=== PATIENT | male | born 1980 | race African-American/Black ===

== ENCOUNTER 2016-09-21 13:29 | Inpatient (IN) ==
[2016-09-21] MEDS ORDERED: ZOFRAN IV PRN (14:39)
[2016-09-21] MEDS ORDERED: NS 1,000 ML IV SCH (15:00)
--- NOTE | 2016-09-21 15:05 | Diag Imaging Result Doc PS360 ---
ABDOMEN FLAT/UPRIGHT - 09/21/2016 INDICATION: intractable N/V TECHNIQUE: COMPARISON: CT abdomen pelvis 09/19/2016 FINDINGS: There is moderate constipation of the before meals ascending and transverse colon. No bowel obstruction or free air. No abnormal calcifications. IMPRESSION: Moderate constipation. Electronically signed by Clive Weathers 09/21/2016 3:03 PM
[2016-09-21 15:12] LABS: BASO% 0.1 % (0.0-0.8); EOS# 0.03 X1000 (0.0-0.7); EOS% 0.2 % (0.0-10.0); HEMATOCRIT 40.4 % (42.0-52.0); HEMOGLOBIN 14.4 g/dL (14.0-18.0); IMM GRAN# 0.05 X1000 (0.0-0.04); IMM GRAN% 0.3 % (0.0-0.5); LYMPH# 0.62 X1000 (1.2-3.4); LYMPH% 3.5 % (20.5-51.1); MANUAL DIFF NEEDED? YES; MCH 28.9 PG (27-31); MCHC 35.6 g/dL (33-37); MONO# 1.44 X1000 (0.11-0.59); MPV 10.4 FL (7.4-10.4); NEUT% 87.9 % (42.2-75.2); PLT 295 X1000 (130-400); RBC 4.99 XMIL (4.7-6.1)
[2016-09-21 15:14] LABS: URINE MICRO REVIEW NEEDED? NO; URINE SOURCE VOIDED
[2016-09-21 15:20] LABS: BILIRUBIN URINE SMALL (NEGATIVE); BLOOD URINE NEGATIVE (NEGATIVE); COLOR YELLOW; GLUCOSE URINE NEGATIVE (NEGATIVE); LEUKOCYTES URINE NEGATIVE (NEGATIVE); NITRITE URINE NEGATIVE (NEGATIVE); PH URINE 6.5; PROTEIN URINE 100 mg/dL (NEGATIVE); SP GRAVITY URINE 1.035; TURBIDITY URINE CLEAR (CLEAR); UROBILINOGEN URINE 2 mg/dL (NORMAL)
[2016-09-21] MEDS: SODIUM CHLORIDE 0.9% INJ SCH (15:22)
[2016-09-21] MEDS: PROTONIX IV SCH (15:22)
[2016-09-21 15:24] LABS: UR EPITHELIAL CELLS >10 /HPF (<10); URINE BACTERIA NEGATIVE /HPF; URINE RBC <10 /HPF (<10)
[2016-09-21 15:31] LABS: AGAP 18; ALBUMIN 4.3 g/dL (3.5-5.0); ALKALINE PHOSPHATASE 176 U/L (32-122); AMYLASE 187 U/L (20-200); BUN 8 mg/dL (8-22); CALCIUM 9.5 mg/dL (8.8-10.2); CHLORIDE 84 mmol/L (98-107); COSMO 258; GOT 17 U/L (10-34); GPT 21 U/L (10-44); LIPASE 233 U/L (13-60); POTASSIUM 3.7 mmol/L (3.5-5.1); SODIUM 129 mmol/L (136-145); TCO2 27 mmol/L (25-35); TOTAL BILIRUBIN 0.53 mg/dL (0.20-1.00); TOTAL PROTEIN 8.8 g/dL (6.3-8.3)
[2016-09-21 15:57] LABS: LYMPHS 3 % (21-51); MONO 7 % (1-9)
[2016-09-21] MEDS ORDERED: ROCEPHIN 1 GM/NS 1 GM/50 ML IVPB IV SCH (17:00)
[2016-09-21] MEDS ORDERED: DULCOLAX PR ONE (19:49)
[2016-09-21] MEDS: NICODERM PATCH TD SCH (21:25)
[2016-09-21] MEDS: LEVAQUIN 500 MG/D5W 500 MG/100 ML IVPB IV SCH (21:56)
--- NOTE | 2016-09-22 00:56 | CONSULTATION ---
DATE OF CONSULTATION: 09/21/2016 HISTORY AND REASON FOR CONSULTATION: For evaluation of this patient with abdominal pain and constipation. HISTORY OF PRESENT ILLNESS: This is a 36-year-old gentleman who went to the emergency room on 09/19/2016. At that time, the patient had been having abdominal pain for 1 day. He has undergone a CT scan of the abdomen and pelvis, which revealed that he has some mesenteric adenopathy and panniculitis. The stranding was around the peripancreatic area, and it extended to the mesentery, with multiple enlarged lymph nodes, the largest of them was 2.8 cm in size. The patient was given Bactrim by the ER physician, and he was sent home. However, his mother said that he has been continuing to have abdominal pain, especially in the epigastric area. Therefore, he went to see Dr. Guzman, who decided to admit to the patient to the hospital, and a consultation was obtained. The patient is a poor historian. The mother, she works at [employer]. The mother told me that she was told that the patient has gastritis. Currently, there is a suspicion of acute pancreatitis. This year, the patient was seen several times in the emergency room. There was a visit on 06/22/2016. At that time, the complaint was nausea and vomiting. Apparently, the patient seems to have recurrent attacks of nausea and vomiting and abdominal pain. He also had some left upper quadrant pain at that time. According to the patient, he has been having abdominal pain in the epigastric area, and nausea and vomiting, since about 3-4 days. The pain is so severe, that he needed to come to the emergency room again and again. While in the hospital, the patient is feeling better now. He also claimed that he had at least 5-6 bowel movements per day, but his mother is claiming that he is actually constipated. He was given IV antibiotics, and also pantoprazole and Zofran IV for nausea, and he is feeling much better at this point. Today, the abdominal x-rays revealed a significant amount of stools in the transverse colon and ascending colon. No evidence of obstruction. An ultrasound is being done. PAST MEDICAL HISTORY: 1. Patient is mentally challenged. 2. He also has significant allergic rhinitis, but no asthma. 3. He lives with his mother, and does not seem to have any other medical problems. PAST SURGICAL HISTORY: None. SOCIAL HISTORY: The patient smokes according to him. Mother states that it is news to him also. FAMILY HISTORY: Unremarkable. GASTROINTESTINAL REVIEW OF SYSTEMS: Appetite is remaining fair. There is confusion regarding whether there is significant constipation or diarrhea. There is no fever or chills. The abdominal pain is mainly in the epigastrium. There is no significant lower abdominal pain. He has had some nausea with vomiting, which is under control. PHYSICAL EXAMINATION: Vital Signs: The temperature is 98.2 degrees, pulse rate is 122, respiratory rate is 12, and the blood pressure is 122/85. Skin: Warm and dry. Mucous membranes are moist. Neck: Supple. There is no thyromegaly. Cardiac: Both heart sounds are heard. Rhythm is regular. No murmur. Lungs: Clear to percussion and auscultation. Abdomen: There is tenderness in the epigastrium present, with bowel sounds normally heard. There is no evidence of any abdominal distention. No masses felt. Extremities: Free of any edema. LABORATORY DATA: The WBC count is 17.93. On 09/19, it was 11.2, with a hemoglobin 14.4, hematocrit 40.4, the platelet count is 295,000. The sodium is 129, potassium is 3.7, chloride is 84. The CO2 is 27, BUN is 8, creatinine is 1. The glucose is 109. Alkaline phosphatase is 176. Total protein is 8.8. Albumin 4.3. Globulin is 4.5. Amylase is 187. Lipase is 233. Urine showed protein and ketones, 10-20 WBCs. IMPRESSION: Possible acute pancreatitis, with some mesenteric adenitis present. In acute pancreatitis, usually this degree of mesenteric adenitis is unusual. He may have a viral infection causing that. RECOMMENDATION: The patient is pain-free now. We will observe the patient with the medications and IV fluids which is being ordered. The sodium needs to be corrected. He may need to further evaluation of the GI tract, but based on how he does in the next few days, that can be decided at a later date. I discussed the patient's condition with his mother Greta. cc: Arnie Guzman MD
--- NOTE | 2016-09-22 03:48 | HISTORY AND PHYSICAL ---
CHIEF COMPLAINT: Abdominal pain, intractable nausea and vomiting. HISTORY OF PRESENT ILLNESS: Mr. Vyas is a 36-year-old, gentleman complaining of pain in the abdomen going on for 2 days. The pain was epigastric, mild to moderate, associated with nausea and vomiting. The patient vomited multiple times. The patient claimed he vomited 5 times even today. Every time he tries to eat or drink, the patient was throwing up. The patient went to the emergency room over the weekend. Patient had workup done, told to have a stomach virus and patient was given some medication. The patient was sent home. The patient was not doing better. He continued to have nausea and vomiting. The patient was feeling weak. I evaluated patient in the office. I reviewed his record from the ER. The patient had elevated lipase and some CT evidence of pancreatitis, constipation. As patient was not responding to outpatient treatment, I decided to admit the patient for further care. The patient did have some chills, low-grade fever. The patient did have nausea. No hematemesis or melena. He denied any diarrhea. The patient was constipated. No bleeding per rectum. No abdominal distention. No typical chest pain, palpitations, orthopnea, or PND. Unquantified weight loss. No heat or cold intolerance. The patient had concentrated urine, decreased urine output. No joint pain or swelling. No runny nose, stuffy nose, sinus drainage. The patient had a history of conjunctivitis, seen by eye doctor, doing better. No heat or cold intolerance. Denied polyuria or polydipsia. No unusual headache, neck stiffness, or blurred vision. No further history available at this time. ALLERGIES: No known drug allergies. MEDICATIONS: Patient is on Zyrtec and Bactrim DS. PAST MEDICAL HISTORY: Significant for asthma, rhinitis, current conjunctivitis, gastritis. PERSONAL HISTORY: Single. Lives with the mother. The patient smokes a pack per day. Denied alcohol or substance abuse. FAMILY HISTORY: Significant for mother with hypertension. The patient does not know about his father's medical issues. REVIEW OF SYSTEMS: As per HPI. PHYSICAL EXAMINATION: GENERAL: Young gentleman in mild distress. Rest from the chart. HEENT: Head atraumatic, normocephalic. [place] conjunctivae. Anicteric sclerae. Extraocular muscle movement normal. Fundus cannot be penetrated. Good oral hygiene. No tonsillopharyngeal congestion. Ears and nose benign. Dry oral mucosa. NECK: Supple. No JVD, thyromegaly, or lymphadenopathy. CHEST: Bilateral good air entry present. No rales or rhonchi. CARDIOVASCULAR: S1 and S2 heard. No gallop or thrill. ABDOMEN: Soft. No distention. Bowel sounds present. Mild epigastric tenderness. No guarding or rigidity. EXTREMITIES: No cyanosis, clubbing. No acute DVT. RECREATION ESTABLISHMENT MANAGER: Alert, awake. Able to move all 4 limbs. MUSCULOSKELETAL SYSTEM: No evidence of acute synovitis. LABORATORY DATA: Revealed leukocytosis with left shift. Electrolytes: Sodium was 129, CO2 was 27, blood glucose 109. Alkaline phosphatase was 176, total protein 8.8, amylase was 186, lipase was 233. Urinalysis, 10-20 WBCs. CONSIDERATION: Patient admitted with abdominal pain, intractable nausea and vomiting, not responding to outpatient treatment. Laboratory data suggestive of acute pancreatitis. The patient does have leukocytosis, constipation, gastritis. His CT scan done yesterday, results reviewed. PLAN: Admit the patient. IV hydration. Septic workup. IV antibiotics. GI consultation. Overall plan discussed at length with the patient and his mother. They are in agreement. cc: Arnie Guzman MD
--- NOTE | 2016-09-22 06:42 | PROGRESS NOTE ---
DATE: 09/22/2016 SUBJECTIVELY: Mr. Vyas is feeling some better. The patient denied any vomiting, vague abdominal pain. No nausea. The patient did have good bowel movement. He is scheduled to have an abdominal ultrasound today. No dysuria or hematuria. No typical chest pain. The patient's vital signs noted. Patient remains afebrile. OBJECTIVE: Neck: Supple. No JVD. Lungs: Bilateral good air entry present. CVS: S1 and S2. Tachycardia. Abdomen: Soft, globular. Bowel sounds present. Extremities: No cyanosis, clubbing, edema. LINE STAKER: Alert, awake. Able to move all 4 limbs. CONSIDERATION: Patient admitted with intractable nausea, vomiting. LAB DATA: Revealing pancreatitis. The patient does have tachycardia. Abdominal x-ray did reveal constipation. I gave him Dulcolax suppository. Patient did have good bowel movement. GI consult requested. I am going to get TSH and free T4. Repeat blood work today. Continue rest of the treatment. Close observation. PLAN: Overall plan discussed with the patient and he is in agreement. cc: Arnie Guzman MD
[2016-09-22 07:01] LABS: BASO% 0.1 % (0.0-0.8); EOS# 0.01 X1000 (0.0-0.7); EOS% 0.1 % (0.0-10.0); IMM GRAN# 0.06 X1000 (0.0-0.04); IMM GRAN% 0.4 % (0.0-0.5); LYMPH# 0.83 X1000 (1.2-3.4); LYMPH% 5.5 % (20.5-51.1); MANUAL DIFF NEEDED? YES; MCH 28.6 PG (27-31); MCHC 35.1 g/dL (33-37); MCV 81.3 FL (81-99); MONO# 1.22 X1000 (0.11-0.59); MONO% 8.1 % (1.7-9.3); MPV 10.6 FL (7.4-10.4); NEUT% 85.8 % (42.2-75.2); PLT 261 X1000 (130-400); RBC 4.55 XMIL (4.7-6.1)
--- NOTE | 2016-09-22 07:01 | EKG Report ---
Test Performed on : 09/22/2016 06:12:39 AM Test Reason : CP Blood Pressure : / mmHG Vent. Rate : 111 BPM Atrial Rate : 111 BPM P-R Int : 138 ms QRS Dur : 082 ms QT Int : 320 ms P-R-T Axes : 070 063 021 degrees QTc Int : 435 ms Sinus tachycardia. Nonspecific T wave abnormality Abnormal ECG When compared with ECG of 22-SEP-2016 06:12, (Unconfirmed) No significant change was found Confirmed by Jp Roy MD ([id number]) on 09/23/2016 7:16:17 AM
[2016-09-22 07:02] LABS: AGAP 17; ALBUMIN 3.6 g/dL (3.5-5.0); ALKALINE PHOSPHATASE 154 U/L (32-122); BUN 7 mg/dL (8-22); CALCIUM 8.9 mg/dL (8.8-10.2); CHLORIDE 92 mmol/L (98-107); COSMO 260; GOT 13 U/L (10-34); GPT 16 U/L (10-44); HDL 34 mg/dL (35-55); LDL 100 mg/dL; LIPASE 216 U/L (13-60); MAGNESIUM 1.9 mg/dL (1.5-2.7); SODIUM 131 mmol/L (136-145); TCO2 22 mmol/L (25-35); TOTAL BILIRUBIN 0.39 mg/dL (0.20-1.00); TOTAL PROTEIN 7.9 g/dL (6.3-8.3); TRIGLYCERIDES 125 mg/dL (39-160); VLDL 25 mg/dL
[2016-09-22 07:09] LABS: FREE T4 1.12 ng/dL (0.93-1.70)
[2016-09-22 07:12] LABS: BANDS 14 % (0-1); LYMPHS 10 % (21-51); MONO 6 % (1-9)
--- NOTE | 2016-09-22 07:44 | Diag Imaging Result Doc PS360 ---
EXAM: US ABDOMEN-COMPLETE HISTORY: Abdominal Pain TECHNIQUE: COMPARISON: None. FINDINGS: The aorta and pancreas are obscured. Normal inferior vena cava. No focal hepatic abnormality. There is at least one small polyp within the gallbladder. No stones. The gallbladder wall is not thickened. The common bile duct measures 3 mm. Normal right kidney. No hydronephrosis. Normal spleen. No ascites. Normal left kidney. No hydronephrosis. IMPRESSION: Small gallbladder polyp, otherwise normal abdominal ultrasound Electronically signed by Jj Stearns 09/22/2016 7:42 AM
[2016-09-22] MEDS: NS 1,000 ML IV SCH ×3 (07:51→17:33)
[2016-09-22] MEDS: NICODERM PATCH TD SCH (09:23)
--- NOTE | 2016-09-22 09:51 | PROGRESS NOTE ---
DATE: 09/22/2016 SUBJECTIVE: This patient is a 36-year-old gentleman, admitted with abdominal pain, nausea and vomiting. He is feeling much better today and is tolerating liquid diet. He had 1 bowel movement last night. He said that he had a large bowel movement, most of which was liquid stool. The patient denies any pain today. He also has no nausea or vomiting. He is feeling more hungry and would like to eat better. OBJECTIVE: General: On physical examination, the patient is alert, oriented x3. Vital Signs: Temperature is 98.5 degrees, pulse rate is 119 per minute, blood pressure is 138/92, respiratory rate is 17. Skin: Warm and dry. Abdomen: Soft, not distended. There is no significant tenderness. Bowel sounds are normally heard. Extremities: Free of any edema. LAB DATA: His WBC count is down to of 15.03, hemoglobin 13, hematocrit 37. The sodium has come up to of 131, potassium 4. The alkaline phosphatase has dropped to 154. The lipase is slightly down to 216. IMPRESSION: 1. Improvement in abdominal pain and nausea. 2. It is quite possible he had mild interstitial pancreatitis. 3. A 2.8 cm lymph node in the abdomen needs re-evaluation. 4. Ultrasound is really negative at this point. RECOMMENDATION: Continue IV fluids and I will advance diet to full liquid diet. The hypokalemia is being corrected. We will plan for esophagogastroduodenoscopy tomorrow morning. I have explained the procedure of esophagogastroduodenoscopy with benefit and risks, in particular risk of perforation, hemorrhage and infection. I also explained to him about monitored anesthesia care. The patient agreed for it. cc: Arnie Guzman MD
[2016-09-22] MEDS: PROTONIX IV SCH (15:32)
[2016-09-22] MEDS: SODIUM CHLORIDE 0.9% INJ SCH (15:32)
--- NOTE | 2016-09-22 17:04 | PROGRESS NOTE ---
DATE: 09/22/2016 Mr. Vyas spiked a temperature up to 101 degree. Patient denied any complaint. The patient does have tachycardia at times. No sore throat. No unusual cough, expectoration. Denied abdominal pain. No chest pain or palpitation. His vital signs noted.Neck: Supple. No JVD. Lungs: Bilateral good air entry present. CVS: S1 and S2. Tachycardia. Abdomen: Soft, globular. Bowel sounds present. DIRECTOR OF EARLY CHILDHOOD: Alert, awake. Able to move all 4 limbs. No acute DVT clinically. CONSIDERATION: Patient admitted with acute pancreatitis and gastroenteritis. The patient does have abnormal lymphadenopathy. Lab data did reveal leukocytosis. Considering fever even on antibiotics I repeated blood culture. I am going to check him for connective tissue disease. Considering persistent tachycardia I am going to do blood work to make sure no myocardial damage or myocarditis. Patient's EKG noted. Continue IV hydration and close observation. Overall plan discussed with the patient. cc: Arnie Guzman MD
[2016-09-22] MEDS: TYLENOL PO PRN (17:05)
[2016-09-22] MEDS ORDERED: VANCOMYCIN IV PER PHARMACY MISC SCH (18:15)
[2016-09-22] MEDS ORDERED: VANCOMYCIN 1,600 MG in NS 250 ML IV ONE (18:30)
[2016-09-22] MEDS: LEVAQUIN 500 MG/D5W 500 MG/100 ML IVPB IV SCH (21:00)
[2016-09-23] MEDS: NS 1,000 ML IV SCH ×3 (01:20→22:20)
[2016-09-23] MEDS: TYLENOL PO PRN (04:11)
[2016-09-23 06:41] LABS: BASO% 0.1 % (0.0-0.8); EOS# 0.01 X1000 (0.0-0.7); EOS% 0.1 % (0.0-10.0); HEMATOCRIT 38.2 % (42.0-52.0); HEMOGLOBIN 13.2 g/dL (14.0-18.0); IMM GRAN# 0.04 X1000 (0.0-0.04); IMM GRAN% 0.3 % (0.0-0.5); LYMPH# 0.92 X1000 (1.2-3.4); LYMPH% 7.7 % (20.5-51.1); MANUAL DIFF NEEDED? YES; MCH 28.4 PG (27-31); MCHC 34.6 g/dL (33-37); MCV 82.3 FL (81-99); MONO# 0.69 X1000 (0.11-0.59); MONO% 5.8 % (1.7-9.3); MPV 10.4 FL (7.4-10.4); PLT 288 X1000 (130-400); RBC 4.64 XMIL (4.7-6.1)
--- NOTE | 2016-09-23 07:01 | PROGRESS NOTE ---
DATE: 09/23/2016 SUBJECTIVE: Mr. Vyas is doing fair. The patient spiked temperature yesterday evening and then speech language pathologist prn today up to 102.9. Patient is getting Tylenol. Blood culture Gram stain was positive for gram-positive cocci. The patient was started on vancomycin and patient is on Levaquin. The patient denied any headache. No sore throat. No unusual cough or expectoration. No chest pain. No dysuria or hematuria. Denied any diarrhea. OBJECTIVE: Vital Signs: Noted. Neck: Supple. No JVD. Lungs: Bilateral good air entry present. Few basal crepitations. CVS: S1 and S2 heard. Abdomen: Soft, globular. Bowel sounds present. Extremities: No cyanosis, clubbing. No acute DVT. GARMENT PARTS CUTTER MACHINE: Alert, awake. Able to move all 4 limbs. LAB DATA: Done yesterday revealed a his C-reactive protein was 240. I did check LDH, which was 179, cardiac isoenzymes to look for any myocarditis and those were normal. CONSIDERATION AND PLAN: I am going to get echocardiogram to look for any vegetation on the valve. I talked to Dr. Cifuentes and we postponed the EGD. Patient admitted with gastroenteritis. Lab data was elevated for pancreatitis. The patient does have leukocytosis with left shift and bands. His other problems: 1. Patient does have mild mental weakness. 2. Gastritis. 3. Rhinitis. I am going to check appropriate labs today. ID consult. I repeated blood culture when patient spiked yesterday. We are going to get chest x-ray. After reviewing the results, will make necessary recommendations. cc: Arnie Guzman MD
[2016-09-23 07:02] LABS: AGAP 18; ALBUMIN 3.4 g/dL (3.5-5.0); ALKALINE PHOSPHATASE 221 U/L (32-122); BUN 6 mg/dL (8-22); CALCIUM 8.9 mg/dL (8.8-10.2); CHLORIDE 92 mmol/L (98-107); COSMO 265; GOT 17 U/L (10-34); GPT 19 U/L (10-44); LIPASE 125 U/L (13-60); POTASSIUM 3.7 mmol/L (3.5-5.1); SODIUM 133 mmol/L (136-145); TCO2 23 mmol/L (25-35); TOTAL BILIRUBIN 0.52 mg/dL (0.20-1.00); TOTAL PROTEIN 7.8 g/dL (6.3-8.3)
[2016-09-23 07:11] LABS: LYMPHS 11 % (21-51); MONO 3 % (1-9)
[2016-09-23 07:45] LABS: SED RATE 79 mm/hr (0-15)
--- NOTE | 2016-09-23 08:18 | Diag Imaging Result Doc PS360 ---
EXAM: CHEST-2 VIEWS INDICATION: hypoxia TECHNIQUE: Two views COMPARISON: 07/21/2016 FINDINGS: The inspiration is slightly suboptimal. There is suggestion of mild atelectasis versus mild infiltrate at the left lung base. The lungs are grossly clear, otherwise. There is no definite pleural fluid collection. Cardiac silhouette and central vasculature are grossly unremarkable. IMPRESSION: Suggestion of mild subsegmental atelectasis versus minimal infiltrate at the left lung base. Electronically signed by Stewart Massey 09/23/2016 8:16 AM
[2016-09-23] MEDS: NICODERM PATCH TD SCH (08:21)
--- NOTE | 2016-09-23 08:22 | PROGRESS NOTE ---
DATE: 09/23/2016 SUBJECTIVE: This patient was supposed to have an endoscopy today. However, because he spiked a fever from yesterday evening and last night, the endoscopy was cancelled. The patient still seems to be quite symptomatic from the upper GI tract. He had no bowel movement today, but he had a good bowel movement yesterday. The patient is not feeling very hungry. He is tolerating a clear liquid diet. PHYSICAL EXAMINATION: General: He is alert and oriented x3. Vital Signs: This morning, the temperature was 102.9 degrees. The pulse rate was 129. Blood pressure was 137/86. Skin: Warm and dry. Mucous membranes are moist. Neck: Supple. There is no thyromegaly. Cardiovascular: Both heart sounds are heard. Rhythm is regular. I could not hear any murmur. He is tachycardic. Lungs: Clear to percussion and to auscultation. Abdomen: Soft, not distended. There is no tenderness at this point in the epigastrium. No masses felt. Bowel sounds are normally heard. LABORATORY DATA: The WBC count came down from 15.03 to 11.96. Hemoglobin is 13.2, hematocrit 38.2, the platelet count is 288,000. Sodium is 133 potassium is 3.7, chloride is 92. CO2 is 23, BUN is 6, creatinine is 0.8. The alkaline phosphatase went up from 154 to 221. The lipase came down to 125 from 216. I reviewed the CT scan with Dr. Reyez. There is this lymph node which is fairly big, which can be approached by the CT scan guided needle biopsy. Since he does not seem to have serious GI symptoms at this point, apart from vague abdominal pain, the EGD will be held off. Dr. Guzman called me this morning and said that he was planning to consult Dr. Hanson regarding this patient. DIFFERENTIAL DIAGNOSIS: 1. Intra-abdominal sepsis. 2. Possible Arya Lovell virus infection causing lymphadenopathy in the mesentery. 3. Cannot rule out cytomegalovirus infection. Consideration should be given for HIV because of difficult history. 4. Possible lymphoma. RECOMMENDATIONS: 1. Consult Dr. Hanson, which I already did. 2. CT-guided biopsy of the lymph node in the abdomen. If that fails, a laparoscopy can be considered. cc: MD Dr. Valentin Moreno
[2016-09-23 09:11] LABS: INR 1.24; PROTIME 13.2 Seconds (9.2-11.7); PTT 37.3 Seconds (22.0-36.0)
[2016-09-23] MEDS: DILAUDID IV PRN (11:32)
--- NOTE | 2016-09-23 11:34 | Diag Imaging Result Doc PS360 ---
EXAM: CT ABD/PELVIS W/ IV CONT ONLY HISTORY: Follow-up from 09/19/2016 TECHNIQUE: CT of the abdomen with and without intravenous contrast COMMENT: Residual lead the patient was scheduled for a biopsy of a mesenteric node which was accessible at the time the previous study of 09/19/2016. This node is no longer accessible low with large amounts of bowel gas throughout the colon is the node from the surface of the abdomen. The configuration of the nodes and indeed the size of the nodes may have changed since the previous study. There is lucency and swelling throughout the pancreas which was not evident at the time the previous study. Peripancreatic stranding in the fat is present. No definite evidence of necrosis or abscess formation is present. There is still mesenteric adenopathy with nodes exceeding 13 mm in size. There is stool and gas in the ascending colon and gas throughout the transverse colon. Some small bowel of fluid is present. The portal vein is patent. There is no evidence of abdominal aortic aneurysm. The spleen is slightly larger than it was now measuring 210.2 cm in AP dimension versus 9.4 cm previously. The kidneys are stable in appearance. IMPRESSION: Pancreatitis. If present previously this has worsened dramatically since 09/19/2016. The mesenteric adenopathy may actually have improved since the previous study. Electronically signed by Luan Reyez 09/23/2016 11:32 AM
--- NOTE | 2016-09-23 13:01 | ECHO REPORT ---
ORDER DATE: 09/22/2016 MEASUREMENTS: 1. Left ventricular end-diastolic diameter 4.2. 2. End-systolic diameter 2.8. 3. Septal thickness 1.2. 4. Posterior wall thickness 1. 5. Left atrium 3.3. 6. Aortic root 2.9 SUMMARY: 1. Adequate quality study. 2. Aortic valve without structural abnormality and opens normally on 2-dimensional images with peak gradient less than 10 mmHg. 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 There is trace mitral regurgitation. Tricuspid valve without evidence of structural abnormality with trace tricuspid regurgitation. Pulmonic valve is without structural abnormality. Estimated systolic PA pressure by Doppler is 20 to 25 mmHg. The aortic root is normal size. 3. Normal left ventricular dimensions suggested. Estimated left ejection fraction appears to be at least 55%. No regional wall motion abnormality is evident. Doppler suggests normal left ventricular diastolic function. 4. No pericardial effusion. 5. Appearance of inferior vena cava suggests normal central venous pressure. CONCLUSIONS: 1. 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 2. Normal left ventricular function without wall motion abnormality evident. cc: MD Arnie Carson MD
--- NOTE | 2016-09-23 14:08 | PROGRESS NOTE ---
DATE: 09/23/2016 ADDENDUM REPORT This patient was scheduled for a CT-guided biopsy of the lymph node in the abdomen. A CT scan was done by Dr. Reyez at that time, he saw a lot of gaseous distention of the bowel loops and this particular lymph node moved its positioned and it was not approachable by the needle. He called me and we both reviewed the CT scan. In fact several lymph nodes were there, but the size of the lymph nodes were smaller, but the 1 which was close to the anterior abdominal wall had moved into some other spot and was not approachable because of the intervening loops of bowel. So he did not do a CT guided biopsy because it not technically possible. However on evaluating the pancreas there was lucency and swelling throughout the pancreas which suggests an interstitial pancreatitis. That inflammation was much more than it was before. Pancreatic stranding in the fat was still present. No evidence of any necrosis. The mesenteric adenopathy was better. Still stool present in the ascending colon. The spleen also was slightly enlarged. After reviewing the CT scan, I went to the patient's room and his mother Greta was with him and I discussed the inability to do the CT guided biopsy and I also talked to him about a consultation with Infectious Disease, Dr. Hanson. hiatus. The impression is that he developed pancreatitis and perhaps developed an infection following the pancreatitis. I am not sure what caused the infection. He could have viral inflammation which might be resulting involving the pancreatic as well as the mesentery plus the lymph nodes there. Various causes such as cytomegalovirus and Arya-Lovell virus can cause it although the process is usually reversed, the pancreatitis comes at a later time which might be quite unusual in this situation. We will have some ability to understand the disease process from the evaluation Dr. Hanson does. I reassured the patient and his mother the pancreatitis is not necrotizing. That is good news however he should be continued only on clear liquid diet until he is symptomatically improved. cc: MD Nabil Moreno MD
[2016-09-23] MEDS: VANCOMYCIN 1,100 MG in NS 250 ML IV SCH ×2 (14:53→14:56)
[2016-09-23] MEDS: PROTONIX IV SCH (14:53)
[2016-09-23] MEDS: ZOSYN 3.375 GM/NS 3.375 GM/50 ML IVPB IV SCH ×2 (14:54→22:19)
[2016-09-23] MEDS: SODIUM CHLORIDE 0.9% INJ SCH (14:55)
--- NOTE | 2016-09-23 15:21 | CONSULTATION ---
DATE OF CONSULTATION: 09/23/2016 CONCLUSION: Patient is admitted to the hospital with abdominal pain and fever. His lipase is elevated at 233, the amylase is 186. I think the patient does indeed have pancreatitis which was suggested on the patient's CT scan. RECOMMENDATIONS: I have discontinued the patient's current antibiotics and placed him on Zosyn. DISCUSSION: It was difficult to get a history from this patient. According to him, he has had abdominal pain and fever for the past week. He has not had any nausea, vomiting or diarrhea. He has not had any dysuria. His the CBC shows a white count 11,960, hemoglobin 13.2, and platelet count 288,000. Creatinine is 0.8. GFR is greater than 60. The alkaline phosphatase is 221. The other elements of the liver profile were normal. Patient's urinalysis showed white cells but no bacteria. Urine culture is negative. One out of 4 blood cultures have grown a coagulase negative staph. I think this is a contaminant as well. Urine culture is negative. PAST MEDICAL HISTORY/REVIEW OF SYSTEMS: Eyes and Ears: Years patient does not have any difficulty hearing or seeing. Neck: No stiffness. Respiratory: No cough or shortness of breath. Cardiac: No chest pain or palpitations. Gastrointestinal: Patient has been having abdominal pain. He has not had nausea, vomiting or diarrhea. Genitourinary: No dysuria or flank pain. Neurologic: No seizures or unilateral loss of weakness or sensation to touch. Hematologic: The patient does not have a history of anemia or bleeding tendency. Bones, joints, muscles: No joint swelling or muscle aching. The patient states that he is weak in his legs. The remainder the patient's review of systems was completed and was negative. PREVIOUS HOSPITALIZATIONS AND OPERATIONS: He has been admitted for gout. Also a year ago he was hospitalized with an illness that was similar to the one he has now. MEDICAL DISEASES: Positive for hypertension, asthma, gastritis, and pancreatitis. Associated with the pancreatitis is mesenteric adenopathy. The patient also has hypertension, asthma, and gastritis. INFECTIOUS DISEASE HISTORY: Negative for pneumonia and UTI. FAMILY HISTORY: Positive for myocardial infarction. SOCIAL HISTORY: [place] He is single. He lives with his mother. He previously was working at [employer] but he told me he quit working there. HOME MEDICATIONS: Consisted only of Septra. SOCIAL HISTORY: He does not drink alcoholic beverages. He does not abuse drugs. He is a cigarette smoker. PHYSICAL EXAMINATION: Vital Signs: The last temperature taken was 102.9. Neck: No stiffness. Lungs: Clear to auscultation. Cardiovascular: Regular heart rate. Abdomen: Soft. It is slightly tender in the upper part of the abdomen. Neurologic: The patient is appears comfortable, he is lying in bed. He can move his extremities. There is no tremor. His memory as regarding his medical history was decreased. He was very slow to answer questions and sometimes the patient talked but did not make any sense. Thank you for the consult. cc: MD Arnie Olivares MD
[2016-09-24] MEDS: ZOSYN 3.375 GM/NS 3.375 GM/50 ML IVPB IV SCH ×2 (05:51→22:53)
[2016-09-24] MEDS ORDERED: DULCOLAX PR ONE (06:59)
[2016-09-24] MEDS: DILAUDID IV PRN ×3 (07:22→19:30)
--- NOTE | 2016-09-24 07:38 | PROGRESS NOTE ---
DATE: 09/24/2016 SUBJECTIVE: Mr. Vyas is doing fair. Complaining of abdominal pain. No nausea, vomiting. The patient's fever is improving. No chest pain. No diarrhea. The patient is very vague and poor historian. The patient is under care of [facility] [employer], ID specialist, and myself. Radiologist tried CT-guided biopsy of large intraperitoneal lymph node but he could not access the lymph node partially due to change in the size and there was large amount of colonic gas. Repeat CT did reveal pancreatitis. The patient's fever is improving. PHYSICAL EXAMINATION: Vital Signs: Vital signs noted. Patient is tachycardic at times. Neck: Supple. No JVD. Lungs: Bilateral good air entry present. CVS: S1 and S2 heard. Abdomen: Soft. Mild upper abdominal tenderness. No guarding or rigidity. Extremities: No cyanosis, clubbing. No acute DVT. MATURITY CHECKER: Alert, awake. Able to move all 4 limbs. ASSESSMENT AND PLAN: The patient's mother was present. I am going to repeat abdominal x-ray. Continue rest of the treatment. Repeat blood work tomorrow. We will give him Dulcolax suppository for constipation. Antinuclear antibody was negative. I am going to start him on Clinimix. cc: Arnei Guzman MD
[2016-09-24] MEDS ORDERED: TOPROL XL PO SCH (09:00)
[2016-09-24 09:27] LABS: HIV ANTIBODY SCREEN SEE COMMENTS
--- NOTE | 2016-09-24 10:11 | PROGRESS NOTE ---
DATE: 09/24/2016 HISTORY AND REASON FOR ADMISSION: This patient was suspected of having acute pancreatitis and he was admitted for further evaluation and management. He had undergone a CT scan yesterday which revealed that there is significant interstitial pancreatitis. The lymph nodes which were seen in the previous study were supposed to be biopsied yesterday but it was not in the right position during yesterday's study. Therefore, biopsy was not done. The patient developed fever so endoscopy was canceled for yesterday. He also grew coagulase-negative staphylococcus from 1 blood culture. The patient is on vancomycin and ceftriaxone. Yesterday, Dr. Hanson, the infectious disease specialist, saw him and he put him on piperacillin. The patient is doing quite well today with improvement in his symptoms. He feels soreness in the upper and mid abdomen but there is no nausea or vomiting. He said that his bowels are moving fairly well. No diarrhea. PHYSICAL EXAMINATION: Vital Signs: The temperature is 99.1 degrees, the pulse rate is 105, respiratory rate is 20, blood pressure is 132/84. Skin: Warm and dry. HEENT: Mucous membranes are moist. Neck: Supple. There is no thyromegaly. Cardiac: Both heart sounds are heard. Rhythm is regular. Lungs: Clear to percussion and auscultation. Abdomen: Soft, slightly protuberant. Not distended. Bowel sounds are heard. There is slight tenderness in the epigastric area. No masses felt. Extremities: Free of any edema. Neurologic: I made the patient sit up and also stand up. He said that he is mobilizing and going to the bathroom. IMPRESSION: 1. Acute pancreatitis. The picture is quite clearer now. It is an interstitial pancreatitis with some mesenteric stranding. 2. Lymphadenopathy. 3. Some infectious process probably in relation to the mesentery. RECOMMENDATION: Follow the current management with a full liquid diet until the patient becomes really hungry. Other management per Dr. Hanson and Dr. Guzman. cc: MD Nabil Moreno MD
[2016-09-24 10:14] LABS: HEPATITIS PROFILE ACUTE SEE COMMENTS
[2016-09-24] MEDS: NS + KCL 20 MEQ 1,000 ML IV SCH (10:20)
[2016-09-24] MEDS: CLINIMIX E 4.25%-5% SOLUTION 1,000 ML IV SCH ×2 (10:21→21:13)
[2016-09-24] MEDS: NICODERM PATCH TD SCH (10:25)
--- NOTE | 2016-09-24 18:07 | PROGRESS NOTE ---
DATE: 09/24/2016 PRESENT ILLNESS: I think the patient has pancreatitis and gradually he appears to be improving from that, both from a clinical point of view and also based on laboratory studies. MEDICATIONS: The patient is receiving IV Zosyn. PHYSICAL EXAMINATION: Vital Signs: Temperature is 99.4 degrees, pulse 120, respiration 16, blood pressure 122/82. General: This is a somewhat ill-appearing, young male. He is in no acute distress. He is more alert today. He is able to talk and be understood much better than earlier. Lungs: Clear to auscultation. Cardiovascular: Heart rate is regular. Abdomen: Soft. There is a slight amount of epigastric tenderness. LAB AND X-RAY: Blood and urine cultures are sterile. Antibody HIV and hepatitis profile are negative. ASSESSMENT AND PLAN: Patient has pancreatitis. Plan is to continue Zosyn. I have ordered for tomorrow a CBC, and lipase. I think if those are normal then possibly the patient, if he eats better, could go over the weekend. COMORBIDITY: He has pancreatitis apparently in the past as well. cc: MD Arnie Olivares MD
[2016-09-24] MEDS: SODIUM CHLORIDE 0.9% INJ SCH (19:24)
[2016-09-24] MEDS: PROTONIX IV SCH (19:24)
[2016-09-25] MEDS: NS + KCL 20 MEQ 1,000 ML IV SCH ×2 (03:09→15:48)
[2016-09-25] MEDS: CLINIMIX E 4.25%-5% SOLUTION 1,000 ML IV SCH ×2 (03:09→15:37)
[2016-09-25] MEDS: ZOSYN 3.375 GM/NS 3.375 GM/50 ML IVPB IV SCH ×4 (06:28→21:45)
[2016-09-25 07:12] LABS: MANUAL DIFF NEEDED? NO
[2016-09-25 07:19] LABS: BASO% 0.1 % (0.0-0.8); EOS% 1.7 % (0.0-10.0); HEMATOCRIT 35.9 % (42.0-52.0); HEMOGLOBIN 12.3 g/dL (14.0-18.0); IMM GRAN# 0.08 X1000 (0.0-0.04); IMM GRAN% 0.7 % (0.0-0.5); INR 1.16; LYMPH# 1.01 X1000 (1.2-3.4); LYMPH% 8.6 % (20.5-51.1); MCH 28.4 PG (27-31); MCHC 34.3 g/dL (33-37); MCV 82.9 FL (81-99); MONO# 0.99 X1000 (0.11-0.59); MONO% 8.5 % (1.7-9.3); MPV 9.7 FL (7.4-10.4); NEUT% 80.4 % (42.2-75.2); PLT 301 X1000 (130-400); PROTIME 12.3 Seconds (9.2-11.7); RBC 4.33 XMIL (4.7-6.1)
--- NOTE | 2016-09-25 07:22 | PROGRESS NOTE ---
DATE: 09/25/2016 SUBJECTIVE: This patient has acute pancreatitis and also probably some intra-abdominal infection revealed by enlarged lymph nodes and also some stranding in the mesentery. The patient is doing quite fine today. His mother is at the bedside. He said that he is feeling no significant pain. OBJECTIVE: Throughout yesterday, his temperature was slightly elevated; today, temperature is 99.8 degrees, the pulse rate is 112. Blood pressure is 125/76. Skin is warm and dry. Lungs are clear. Cardia: Negative. Abdomen soft, not distended. Bowel sounds are normally heard. There is no significant tenderness in the abdomen. Extremities: Free of any edema. He ate fairly well and had one bowel movement yesterday. LABORATORY DATA: Today's lab is not available at this point. IMPRESSION: Acute interstitial pancreatitis with infection. No pancreatic necrosis. Improving. He is seen by Dr. Hanson, and he is on multiple antibiotics. He still has a low-grade fever. His appetite is better but still he should be continued on a full liquid diet. GI will standby. If needed, please call me. cc: MD Nabil Moreno MD
--- NOTE | 2016-09-25 07:35 | PROGRESS NOTE ---
DATE: 09/25/2016 SUBJECTIVELY: Mr. Vyas is feeling some better. He denied any nausea, vomiting, or vague abdominal pain. He had no results with Dulcolax suppository. Some abdominal distention, mainly gaseous. No nausea or vomiting. No high-grade fever or chills. OBJECTIVE: Vital Signs: T-max was 99.8 degrees. Vital signs reviewed. Lungs: Bilateral good air entry present. CVS: S1 and S2 heard. Tachycardia. Abdomen: Soft, mild distention, mainly gaseous. No significant tenderness. Extremities: No cyanosis, clubbing. No acute DVT. SSN/SSBN ASSISTANT NAVIGATOR: Alert, awake. Able to move all 4 limbs. LABORATORY DATA: Ordered for today, results are pending. ASSESSMENT AND PLAN: I am also going to get abdominal x-ray. Continue current treatment. After reviewing the results, will make necessary recommendations. His problems include: 1. Interstitial pancreatitis. 2. Tachycardia. 3. Gastritis. 4. Constipation. cc: Arnie Guzman MD
[2016-09-25 07:36] LABS: AGAP 13; ALBUMIN 3.1 g/dL (3.5-5.0); ALKALINE PHOSPHATASE 410 U/L (32-122); AMYLASE 24 U/L (20-200); BUN 9 mg/dL (8-22); CALCIUM 8.6 mg/dL (8.8-10.2); CHLORIDE 96 mmol/L (98-107); COSMO 273; GOT 43 U/L (10-34); GPT 55 U/L (10-44); POTASSIUM 3.8 mmol/L (3.5-5.1); SODIUM 136 mmol/L (136-145); TCO2 27 mmol/L (25-35); TOTAL BILIRUBIN 0.52 mg/dL (0.20-1.00)
--- NOTE | 2016-09-25 09:42 | Diag Imaging Result Doc PS360 ---
EXAM: ABDOMEN FLAT/UPRIGHT INDICATION: sbo TECHNIQUE: 3 views COMPARISON: 09/21/2016 FINDINGS: There are bowel gas and stool patterns that are nonspecific. There are a few moderately distended loops of small bowel and colon. These are similar to a CT dated 09/23/2016. Given the presence of known acute pancreatitis, this could represent ileus. However, it is nonspecific. There is no evidence of large volume free abdominal gas. There is no evidence of organomegaly. IMPRESSION: Nonspecific distended loops of bowel as described that are similar to a recent prior CT. Electronically signed by Stewart Massey 09/25/2016 9:39 AM
[2016-09-25] MEDS: TOPROL XL PO SCH (10:06)
[2016-09-25] MEDS: NICODERM PATCH TD SCH (10:07)
--- NOTE | 2016-09-25 13:15 | PROGRESS NOTE ---
DATE: 09/25/2016 PRESENT ILLNESS: The patient has pancreatitis. He is improving. He is able to eat more and he is having less pain. MEDICATIONS: The patient is on IV Zosyn. PHYSICAL EXAMINATION: Vital Signs: Temperature is 98.3 degrees, pulse 107, respirations 19, blood pressure 132/88. General: This is a somewhat malnourished-appearing, young male. He is in no acute distress. Lungs: Clear to auscultation. Cardiovascular: Heart rate is regular. Abdomen: Soft and nontender. Neurologic: Patient is alert. He is able to converse. There is no tremor. LAB AND X-RAY: The patient's CBC for today shows a white count of 11,690, hemoglobin 12.3, and platelet count 301,000. Creatinine 0.7. GFR is greater than 60. The patient's lipase is 28. X- ray of the abdomen shows some distended bowel loops. ASSESSMENT AND PLAN: The patient has resolved pancreatitis. I am going to plan to discontinue Zosyn. COMORBIDITY: The patient's comorbidity is that he has pancreatitis as a chronic condition. I am available to see the patient on a p.r.n. basis. I am signing off on his care for right now. cc: MD Arnie Olivares MD
[2016-09-25] MEDS ORDERED: FLEET ENEMA PR ONE (15:41)
[2016-09-25] MEDS: SODIUM CHLORIDE 0.9% INJ SCH (15:50)
[2016-09-25] MEDS: PROTONIX IV SCH (15:50)
[2016-09-25] MEDS ORDERED: MIRALAX PO SCH (21:00)
[2016-09-26 06:02] LABS: MANUAL DIFF NEEDED? NO
[2016-09-26 06:18] LABS: BASO% 0.1 % (0.0-0.8); EOS# 0.31 X1000 (0.0-0.7); EOS% 2.5 % (0.0-10.0); HEMATOCRIT 33.5 % (42.0-52.0); HEMOGLOBIN 11.3 g/dL (14.0-18.0); IMM GRAN# 0.07 X1000 (0.0-0.04); IMM GRAN% 0.6 % (0.0-0.5); LYMPH# 1.12 X1000 (1.2-3.4); LYMPH% 9.2 % (20.5-51.1); MCH 28.3 PG (27-31); MCHC 33.7 g/dL (33-37); MCV 83.8 FL (81-99); MONO# 0.78 X1000 (0.11-0.59); MONO% 6.4 % (1.7-9.3); MPV 9.8 FL (7.4-10.4); NEUT% 81.2 % (42.2-75.2); PLT 321 X1000 (130-400)
[2016-09-26] MEDS: CLINIMIX E 4.25%-5% SOLUTION 1,000 ML IV SCH ×2 (06:24→12:24)
[2016-09-26] MEDS: ZOSYN 3.375 GM/NS 3.375 GM/50 ML IVPB IV SCH (06:25)
[2016-09-26 06:26] LABS: AGAP 14; ALKALINE PHOSPHATASE 405 U/L (32-122); BUN 9 mg/dL (8-22); CALCIUM 8.6 mg/dL (8.8-10.2); CHLORIDE 100 mmol/L (98-107); COSMO 274; GOT 44 U/L (10-34); GPT 79 U/L (10-44); POTASSIUM 3.8 mmol/L (3.5-5.1); SODIUM 137 mmol/L (136-145); TCO2 23 mmol/L (25-35); TOTAL BILIRUBIN 0.47 mg/dL (0.20-1.00); TOTAL PROTEIN 6.5 g/dL (6.3-8.3)
[2016-09-26] MEDS: TOPROL XL PO SCH (08:10)
[2016-09-26] MEDS: NICODERM PATCH TD SCH (08:10)
[2016-09-26] MEDS: NS + KCL 20 MEQ 1,000 ML IV SCH (08:10)
--- NOTE | 2016-09-26 09:25 | PROGRESS NOTE ---
DATE: 09/26/2016 SUBJECTIVE: Mr. Ellis is feeling much better. He denied any fever or chills. Abdominal pain is better. The patient is having good bowel movements. The patient is tolerating full liquid diet well. The patient is feeling hungry. Laboratory data noted. PHYSICAL EXAMINATION: Vital signs reviewed. Neck: Supple, no JVD. Lungs: Clear. Heart: S1 and S2 heard. Abdomen: Soft, nontender, bowel sounds present. IMAGING TECHNICIAN: Alert, awake, able to move a 4 limbs. LABORATORY DATA: Laboratory data done today reviewed. Alkaline phosphatase minimally elevated. AST and ALT results reviewed. ASSESSMENT AND PLAN: Clinically, the patient is improving. Discussed labs and patient again with Dr. Cifuentes, medical aide. We are thinking his presentation is most likely due to viral infection. Clinically, the patient is improving. We both feel comfortable to discharge patient home. Follow up with me next week. Advised him to be on GI soft diet. I am going to try diet first. If he tolerates it, then will discharge him home today. Follow up with Dr. Cifuentes as scheduled. In case of more distress, call us back or go to the emergency room. Overall, discharge condition is satisfactory. cc: Arnie Guzman MD
--- NOTE | 2016-09-26 09:53 | PROGRESS NOTE ---
DATE: 09/26/2016 SUBJECTIVE: This patient has resolving pancreatitis. He is doing quite well this morning. He does not complain of any pain. His appetite is still low. OBJECTIVE: Vital signs: The temperature is 98.0, the pulse rate is 94, respiratory rate is 20, blood pressure is 125/81. His temperature has been remaining normal for several days now. He ate pretty good yesterday, had a full liquid diet. He received an enema, and he said he had about 4 bowel movements. He is also on MiraLAX for his constipation. The patient is recommended not to do anymore smoking. I asked his mother also to encourage him not to smoke. His general examination is negative, especially the abdomen is negative with normal bowel sounds, no tenderness, no distension. LABORATORY DATA: The WBC count is 12.19, hemoglobin 11.3, hematocrit 33.5. The platelet count is 321. Yesterday, his sodium was 136. Today it is 137. Potassium 3.8, chloride 100, CO2 is 23, BUN is 9, creatinine is 0.6, blood sugar is 134. Calcium 8.6. The SGOT is slightly up at 43 yesterday, 44 today, SGPT is 55 and 79. Alkaline phosphatase was 410, and it came down to 405. Total protein 6.3, albumin is 3. Bilirubin is 0.47. I ordered cytomegalovirus antibodies and also Arya-Lovell virus antibodies. IMPRESSION: 1. Resolving pancreatitis. 2. Lymphadenopathy in the abdomen. 3. Mesenteric inflammation. 4. Mild elevation of liver enzymes. Putting all together, the patient may have the possibility of: 1. Sarcoidosis. 2. Arya-Lovell virus infection with mononucleosis. 3. Cytomegalovirus infection may be quite unlikely because he has no immunocompromise. Other infections, such as coxsackievirus infection or even mycoplasma infection could cause this picture; however, it is unlikely without pneumonia. The patient is improving very much. The LFTs also, hopefully, will improve in time. RECOMMENDATION: Advance diet to GI soft diet, keep him on MiraLAX, and he should be discharged home today. I will see him in about 2 weeks. At that time, I will reevaluate his pancreas and his abnormal liver enzymes. I discussed the case with Dr. Guzman. cc: Arnie Guzman MD
[2016-09-26 14:49] VITALS: BP 109/67
[2016-09-26] MEDS: SODIUM CHLORIDE 0.9% INJ SCH (15:08)
[2016-09-26] MEDS: PROTONIX IV SCH (15:08)
--- NOTE | 2016-11-25 11:41 | DISCHARGE SUMMARY ---
ADMISSION DATE: 09/21/2016 DISCHARGE DATE: 09/26/2016 FINAL DISCHARGE DIAGNOSES: 1. Interstitial pancreatitis. 2. Tachycardia. 3. Gastritis. 4. Constipation. 5. Infectious mononucleosis. HISTORY OF PRESENT ILLNESS: Mr. Vyas is a 36-year-old, gentleman admitted with abdominal pain, nausea, vomiting of 2 days duration. The pain was moderate in intensity. The patient also had fever and chills. The patient went to the emergency room, told to have stomach virus. Patient had CT evidence of pancreatitis. The patient had elevated lipase. The patient was not responding to outpatient treatment. I evaluated patient in my office and decided to admit him for further care. HOSPITAL COURSE: The patient was treated with IV hydration, proton pump inhibitor, symptomatic treatment and close observation. GI consult obtained with Dr. Cifuentes. He was planning to do EGD, but because of fever and possible sepsis EGD was postponed. ID consult obtained with Dr. Hanson. The patient had repeat CT scan done which did reveal pancreatitis and it was worsened dramatically. The patient also had mesenteric adenopathy which was improved some. We continue conservative treatment. The patient also had elevated alkaline phosphatase, which we monitored. Overall the patient clinical condition stabilized and improved. The patient did have good bowel movement. He started eating well. His toxic look improved, fever improved, and we decided to discharge patient home. LAB DATA: Revealed alkaline phosphatase was 405, AST was 44, ALT was 79. BUN was 9 and creatinine 0.6. The patient had angiotensin converting enzyme level checked and it was canceled. The patient lipase improved. We did check antinuclear antibody. It was negative. Arya-[place] virus IgG was positive. Hepatitis panel was negative. The patient also had HIV testing done and it was negative. We also checked him for CMV and it was negative. X-RAY DATA: Chest x-ray did not reveal any major problem. PLAN: I advised patient to take medicine regularly. Follow up with me in a week. Follow up with supervisor [employer] as scheduled. In case of more distress, call us back or go to emergency room. OVERALL DISCHARGE CONDITION: Satisfactory. cc: Arnie Guzman MD
== END 2016-09-26 15:58 | disposition home or self-care (01) ==
LOC: DIRADM 13:29 → 3N 14:08
PROVIDERS: ADMIT Internal Medicine; ATTEND Internal Medicine